=== PATIENT | female | born 1950 | race Caucasian/White ===

== ENCOUNTER 2016-07-25 10:35 | Emergency (ER) | payer OTHER ==
[2016-07-25] MEDS ORDERED: IOPAMIDOL 370 (76%) 100 ML VIAL IV ONE (10:36)
[2016-07-25 11:31] LABS: ABSOLUTE NEUTROPHIL COUNT 4.5 K/mm3 (1.8-7.7); BASO % 0.2 % (0.2-1.0); EOS # 0.1 (0.0-0.5); HEMATOCRIT 41.5 % (37.0-47.0); HEMOGLOBIN 13.7 gm/l (12.0-16.0); IMM NEUT% 0.2 % (0-1); LYMPH # 0.8 (1.0-4.8); LYMPH % 13.8 % (15-45); MEAN CELL VOLUME 90.4 fl (81.0-99.0); MEAN CORPUSCULAR HEMOGLOBIN 29.8 pg (27.0-31.0); MEAN PLATELET VOLUME 9.1 fl (7.4-10.4); MONO # 0.7 (0.0-0.8); MONO % 10.8 % (4-12); PLATELET COUNT 186 K/mm3 (130-400); RED CELL DISTRIBUTION WIDTH 11.9 % (11.5-14.5)
[2016-07-25] MEDS ORDERED: SODIUM CHLORIDE 0.9% 1,000 ML ONE (11:40)
[2016-07-25] MEDS ORDERED: ONDANSETRON 4 MG/2ML 2 ML VIAL ONE (11:40)
[2016-07-25] MEDS ORDERED: MORPHINE SULFATE 4 MG/ML SYRINGE ONE (11:40)
[2016-07-25] MEDS ORDERED: LORAZEPAM 2 MG/ML 1ML SDV ONE (11:41)
[2016-07-25 11:47] LABS: ALB/GLOB RATIO 1.3 (>1.0); ALBUMIN 3.7 gm/dL (3.5-5.7); CALCIUM 9.1 mg/dL (8.6-10.3)
[2016-07-25 13:37] LABS: URINE BILIRUBIN NEGATIVE (NEGATIVE); URINE BLOOD NEGATIVE (NEGATIVE); URINE GLUCOSE (UA) NEGATIVE (NEGATIVE); URINE LEUKOCYTE ESTERASE NEGATIVE (NEGATIVE); URINE NITRITE NEGATIVE (NEGATIVE); URINE PROTEIN NEGATIVE (NEGATIVE); URINE UROBILINOGEN NORMAL (0-1 mg/dl)
[2016-07-25 13:42] LABS: URINE APPEARANCE CLEAR; URINE COLOR AMBER
--- NOTE | 2016-07-25 13:57 | CT ---
Exam Type: ABD/PELVIS W/ CON Date and Time: 07/25/2016 1:21 PM Clinical information: Lower abdominal pain with vomiting. Comparison: None Procedure: Imaging device: [id number] Aquilion [address] scanner 1 mm axial images were obtained through the abdomen and pelvis. Stacked reconstructed 3, 4 and 5 mm images were photographed in the axial coronal and sagittal planes. No oral contrast was utilized for this examination. 100 ml of Isovue-370 was injected intravenously. Exam: with intravenous contrast. FINDINGS: Lung bases:The visualized lung bases appear to be appropriate with no mass, effusion or consolidation visualized. Liver: the liver is homogeneous with no discrete abnormality visualized. No definite findings of biliary dilatation are observed. Spleen: The spleen is homogeneous and does not appear to be enlarged. Gallbladder: Normal without enlargement or evidence of adjacent inflammatory changes. Pancreas: Normal without enlargement or evidence of adjacent inflammatory changes. Adrenal glands: Normal without enlargement or evidence of adjacent inflammatory changes. Abdominal aorta: There is atherosclerotic vascular calcification noted with no focal aneurysm identified. Kidneys: A subtle low-attenuation focus is identified involving the inferior aspect of the left kidney with a Hounsfield attenuation value of -47 Hounsfield units likely reflecting a small angiomyolipoma. No evidence of hydronephrosis is visualized. Bowel structures: The visualized bowel is of normal caliber without evidence of dilatation or obstruction. No free fluid or mesenteric inflammatory changes are identified. A small hiatal hernia is present. Appendix: The appendix is well-visualized and appears to be of normal caliber. No periappendiceal inflammatory changes or CT findings of appendicitis are currently observed. Bladder: Partially decompressed. Hernia: No abdominal wall or inguinal hernia is visualized on this examination. Adenopathy: There is evidence of mild central and right lower quadrant mesenteric adenopathy. A 12 mm lymph node is seen within the central mesentery on axial image #68. A 12 mm lymph node is seen within the central mesentery on axial image 56. An 11 mm lymph node is seen within the central mesentery on image 44. A 9 mm lymph node is seen within the right lower quadrant on image 64. An 18 mm lymph node is seen within the right lower quadrant on image 60. Osseous structures: There is a prominent thoracolumbar scoliotic deformity with associated degenerative changes. Pelvic structures: No discrete pelvic abnormalities are visualized in this examination. IMPRESSION: 1. A normal appearance of the appendix without current CT evidence of appendicitis. 2. Mildly prominent central and right lower quadrant mesenteric adenopathy. 3. A small hiatal hernia. 4. Atherosclerotic vascular calcification. 5. A thoracolumbar scoliotic deformity with associated degenerative changes. 6. 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
[2016-07-25] MEDS ORDERED: KETOROLAC TROMETHAMINE 15 MG/ML VIAL ONE (15:01)
== END 2016-07-25 15:31 | disposition home or self-care (01) ==
LOC: ED 10:35
DX: R59.0 Localized enlarged lymph nodes (principal); R10.9 Unspecified abdominal pain; R11.10 Vomiting, unspecified; R19.7 Diarrhea, unspecified; Z87.442 Personal history of urinary calculi
CPT/HCPCS: 83690; 82150; 85025; 80053; 81003; 84484; 74177; 96375 ×3; 99284 ×2; 96374; 96361; J2060; J2270; J1885; J2405; J7030; Q9967